=== PATIENT | male | born 1975 | race Caucasian/White ===

== ENCOUNTER 2019-06-20 08:29 | Emergency (ER) | payer BC ==
--- NOTE | 2019-06-20 09:09 | EDM.PDOC ---
<Meri Nicholson - Last Filed: 06/20/19 08:58> ED HPI GENERAL MEDICAL PROBLEM - General Chief Complaint: Chest Pain Stated Complaint: CHEST PAIN Time Seen by Provider: 06/20/19 08:43 Source of Information: Reports: Patient History Limitations: Reports: No Limitations - History of Present Illness INITIAL COMMENTS - FREE TEXT/NARRATIVE: Patient is a pleasant 44-year-old male who presents to the ED with complaints of chest pain and pressure that has been ongoing for the past 3 weeks. The pain started in the epigastric region, but now is mainly located over the central chest region. He reports the pain and pressure has been constant for the past three weeks, typically rating about a 3-4/10 in severity. The pain increases throughout the day and is the worst in the evening. He does not think anything really exacerbates the pain, such as food or movement, as it is constantly there. The pain will occasionally radiate into the middle of his back. He has tried taking ibuprofen with no relief, but [facility] has provided relief on most occasions. He states he has had a similar episode of pain in the past, where his PCP- Dr. Nolasco, referred him to physical therapy. He reports this helped in the past, so he has tried going to PT a few times in the past three weeks, but this has not provided any relief in pain. This morning the pain woke him up at about 0500 and was a 7/10 in severity. At the time of the exam, he rates the pain as a 3/10. He has a history of heart burn, which he has been on Prilosec for. Lower Chest Pain Score (Numeric/FACES): 4 - Related Data Allergies Allergy/AdvReac Type Severity Reaction Status Date / Time No Known Allergies Allergy Verified 06/20/19 08:45 Home Meds: Home Meds Omeprazole Magnesium [Prilosec Otc] 20 mg PO DAILY 06/20/19 [History] ED ROS GENERAL - Review of Systems Review Of Systems: See Below Constitutional: Reports: No Symptoms, Decreased Appetite. Denies: Fever, Chills , Fatigue HEENT: Reports: Rhinitis. Denies: Sinus Problem, Throat Pain, Vertigo Respiratory: Reports: Cough (occasional for the past week). Denies: Shortness of Breath, Wheezing Cardiovascular: Reports: Chest Pain (central chest radiates down to epigastric region). Denies: Dyspnea on Exertion, Edema, Lightheadedness, Palpitations, Syncope GI/Abdominal: Reports: No Symptoms. Denies: Abdominal Pain, Constipation, Diarrhea, Decreased Appetite, Nausea, Vomiting : Reports: No Symptoms. Denies: Dysuria, Flank Pain, Hematuria Musculoskeletal: Reports: Back Pain (occasionally radiates from chest pain). Denies: Shoulder Pain Skin: Reports: No Symptoms. Denies: Rash, Erythema Neurological: Reports: No Symptoms. Denies: Dizziness, Headache, Numbness, Syncope, Tingling Psychiatric: Reports: No Symptoms ED EXAM, GENERAL - Physical Exam Exam: See Below Exam Limited By: No Limitations General Appearance: Alert, WD/WN, No Apparent Distress Eye Exam: Bilateral Eye: Normal Inspection, PERRL Nose: Normal Inspection, Normal Mucosa, No Blood, Clear Rhinorrhea Head: Atraumatic, Normocephalic Neck: Normal Inspection, Supple, Non-Tender, Full Range of Motion Respiratory/Chest: No Respiratory Distress, Lungs Clear, Normal Breath Sounds, No Accessory Muscle Use, Chest Non-Tender Cardiovascular: Normal Peripheral Pulses, Regular Rate, Rhythm, No Edema, No Gallop, No Murmur, No Rub GI/Abdominal: Normal Bowel Sounds, Soft, Non-Tender, No Organomegaly, No Distention, No Mass Back Exam: Normal Inspection, Full Range of Motion. No: CVA Tenderness (L), CVA Tenderness (R), Vertebral Tenderness Extremities: Normal Inspection, Normal Range of Motion, Non-Tender, Normal Capillary Refill, No Pedal Edema Neurological: Alert, Oriented, Normal Cognition, Normal Gait, Normal Reflexes, No Motor/Sensory Deficits Psychiatric: Normal Affect, Normal Mood Skin Exam: Warm, Dry, Intact, Normal Color, No Rash Course - Vital Signs Last Recorded V/S: Last Vital Signs Temp 97.6 F 06/20/19 08:35 Pulse 78 06/20/19 08:35 Resp 16 06/20/19 08:35 BP 157/100 H 06/20/19 08:35 Pulse Ox 100 06/20/19 08:35 - Orders/Labs/Meds Orders: Active Orders 24 hr Category Date Time Status Cardiac Monitoring [RC] . DIRECTED Care 06/20/19 09:09 Active EKG Documentation Completion [RC] STAT Care 06/20/19 09:09 Active Labs: Laboratory Tests 06/20/19 06/20/19 Range/Units 09:30 09:30 WBC 6.44 (4.23-9.07) K/mm3 RBC 5.52 (4.63-6.08) M/mm3 Hgb 16.3 (13.7-17.5) gm/dl Hct 45.6 (40.1-51.0) % MCV 82.6 (79.0-92.2) fl MCH 29.5 (25.7-32.2) pg MCHC 35.7 H (32.2-35.5) g/dl RDW Std Deviation 38.6 (35.1-43.9) fL Plt Count 229 (163-337) K/mm3 MPV 10.2 (9.4-12.3) fl Neut % (Auto) 73.6 H (34.0-67.9) % Lymph % (Auto) 16.6 L (21.8-53.1) % [place] % (Auto) 7.9 (5.3-12.2) % Eos % (Auto) 0.9 (0.8-7.0) Baso % (Auto) 0.5 (0.1-1.2) % Neut # (Auto) 4.74 (1.78-5.38) K/mm3 Lymph # (Auto) 1.07 L (1.32-3.57) K/mm3 [place] # (Auto) 0.51 (0.30-0.82) K/mm3 Eos # (Auto) 0.06 (0.04-0.54) K/mm3 Baso # (Auto) 0.03 (0.01-0.08) K/mm3 Sodium 141 (136-145) mEq/L Potassium 4.0 (3.5-5.1) mEq/L Chloride 105 (98-107) mEq/L Carbon Dioxide 24 (21-32) mEq/L Anion Gap 16.0 H (5-15) BUN 18 (7-18) mg/dL Creatinine 1.0 (0.7-1.3) mg/dL Est Cr Clr Drug Dosing 111.88 mL/min Estimated GFR (MDRD) > 60 (>60) mL/min BUN/Creatinine Ratio 18.0 (14-18) Glucose 97 (74-106) mg/dL Calcium 8.9 (8.5-10.1) mg/dL Total Bilirubin 0.5 (0.2-1.0) mg/dL AST 21 (15-37) U/L ALT 31 (16-63) U/L Alkaline Phosphatase 78 (46-116) U/L Troponin I < 0.017 (0.00-0.056) ng/mL Total Protein 7.4 (6.4-8.2) g/dl Albumin 3.9 (3.4-5.0) g/dl Globulin 3.5 gm/dL Albumin/Globulin Ratio 1.1 (1-2) Departure - Departure Disposition: Home, Self-Care 01 Clinical Impression: Atypical chest pain Referrals: Hunter Lo MD [Primary Care Provider] - 1 Day Forms: ED Department Discharge Additional Instructions: Take your medication as prescribed. Take pepcid daily. See Dr Nolasco tomorrow. Please return if you are worse. Sepsis Event Note - Evaluation Sepsis Screening Result: No Definite Risk - Focused Exam Vital Signs: Vital Signs Temp Pulse Resp BP Pulse Ox 06/20/19 08:35 97.6 F 78 16 157/100 H 100 Date Exam was Performed: 06/20/19 Time Exam was Performed: 08:58 - My Orders Last 24 Hours: My Active Orders 06/20/19 09:09 Cardiac Monitoring [RC] . DIRECTED EKG Documentation Completion [RC] STAT - Assessment/Plan Last 24 Hours: My Active Orders 06/20/19 09:09 Cardiac Monitoring [RC] . DIRECTED EKG Documentation Completion [RC] STAT <Jordy Harringotn - Last Filed: 06/20/19 10:56> Course - Re-Assessments/Exams Free Text/Narrative Re-Assessment/Exam: 06/20/19 10:53 I examined the patient myself and I agree with Meri's assessment and plan. I ordered an EKG, CXR and labs. His EKS shows a NSR with no acute changes. His CXR looks good. His labs look good. I will have him stay on the prilosec and take pepcid. He is seeing Dr Nolasco tomorrow. He may need an EGD. Departure - Departure Time of Disposition: 11:00 Condition: Good Sepsis Event Note - Focused Exam Date Exam was Performed: 06/20/19 Time Exam was Performed: 10:53
--- NOTE | 2019-06-20 10:41 | CR ---
Chest: Two views of the chest were obtained. Comparison: No prior chest imaging. Heart size and mediastinum are normal. Lungs are clear with no acute parenchymal change. Bony structures appear unremarkable. Impression: 1. Nothing acute is appreciated on two-view chest x-ray. Diagnostic code #1 This report was dictated in [place] Standard Time
== END 2019-06-20 11:02 | disposition home or self-care (01) ==
LOC: JD.ED 08:29
DX: R07.89 Other chest pain (principal); Z79.899 Other long term (current) drug therapy
CPT/HCPCS: 36415; 71046; 71046-26; 80053; 84484; 85025; 93005; 93010; 99283; 99285-25